=== PATIENT | male | born 1980 | race Caucasian/White ===

== ENCOUNTER 2016-10-06 18:03 | Emergency (ER) | payer OTHER | END 2016-10-06 20:10 | disposition home or self-care (01) | LOC: FER 18:03 | DX: S90.411A Abrasion, right great toe, initial encounter (principal); X58.XXXA Exposure to other specified factors, initial encounter; Y93.55 Activity, bike riding | CPT/HCPCS: 99283 ==

== ENCOUNTER 2016-10-09 23:59 | Emergency (ER) | payer OTHER | END 2016-10-10 01:00 | disposition home or self-care (01) | LOC: FER 23:59 | DX: M20.21 Hallux rigidus, right foot (principal); F41.9 Anxiety disorder, unspecified; F17.200 Nicotine dependence, unspecified, uncomplicated | CPT/HCPCS: J1885 ==

== ENCOUNTER 2021-12-06 22:56 | Emergency (ER) | payer OTHER ==
[~2021-12-06 22:56] MED LIST: PROZAC20 M1 PO; SYNTHROID25 MCG PO
[2021-12-06 23:42] LABS: BILIRUBIN NEGATIVE (NEGATIVE); BLOOD NEGATIVE Ery/uL (NEGATIVE); CLARITY CLEAR (CLEAR); COLOR YELLOW (YELLOW); GLUCOSE (U) NORMAL (NORMAL); LEUKOCYTES NEGATIVE Leu/uL (NEGATIVE); NITRITE NEGATIVE (NEGATIVE); PROTEIN NEGATIVE (NEGATIVE); UROBILINOGEN 0.2 mg/dL (0.2-1.0); pH 5.5 (5.0-9.0)
[2021-12-06 23:48] LABS: SQUAMOUS EPITHELIAL CELLS RARE; URINARY WBC RARE
[2021-12-09 21:06] LABS: CHLAMYDIA TRACHOMATIS, NAA Negative (Negative); NEISSERIA GONORRHOEAE, NAA Negative (Negative)
== END 2021-12-07 00:14 | disposition home or self-care (01) ==
LOC: FER 22:56
PROVIDERS: Emergency Medicine
DX: R30.0 Dysuria (principal); F17.200 Nicotine dependence, unspecified, uncomplicated; Z20.2 Contact with and (suspected) exposure to infections with a predominantly sexual mode of transmission
CPT/HCPCS: 81001; 87088; 87210; 87491; 87591; J0696

== ENCOUNTER 2022-01-20 19:17 | Emergency (ER) | payer OTHER | END 2022-01-20 23:18 | disposition home or self-care (01) | LOC: FER 19:17 | DX: M79.672 Pain in left foot (principal); E03.9 Hypothyroidism, unspecified; Z79.899 Other long term (current) drug therapy | CPT/HCPCS: 73620 ==